=== PATIENT | female | born 2000 | race Caucasian/White ===

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

== ENCOUNTER 2020-02-03 16:26 | Emergency (ER) | payer BC | END 2020-02-03 16:47 | disposition home or self-care (01) | LOC: ED 16:37 | DX: Z02.9 Encounter for administrative examinations, unspecified (principal) ==

== ENCOUNTER 2021-02-25 02:28 | Outpatient (CLI) | payer BC ==
[2021-02-25 02:38] VITALS: BP 131/60
[2021-02-25 03:32] LABS: BASOPHILS % (AUTO) 1 % (0-1); EOSINOPHILS % (AUTO) 1 % (1-7); LYMPHOCYTES % (AUTO) 22 % (22-44); MEAN CORPUSCULAR HEMOGLOBIN 25.9 pg (27.0-34.8); MEAN CORPUSCULAR HGB CONC 33.1 g/dL (32.4-35.8); MONOCYTES % (AUTO) 7 % (2-9); NEUTROPHILS % (AUTO) 70 % (42-75); PLATELET COUNT 205 x10^3/uL (130-400); RED BLOOD COUNT 4.33 x10^6/uL (3.82-5.3); RED CELL DISTRIBUTION WIDTH 14.9 % (9.6-15.2)
[2021-02-25 03:47] LABS: MD NO
[2021-02-25 03:50] LABS: ALBUMIN 2.3 g/dL (3.4-5.0); ANION GAP 8 mmol/L (5-15); CALCIUM 8.5 mg/dL (8.5-10.1); CHLORIDE 111 mmol/L (98-107)
[2021-02-25 03:59] LABS: ALANINE AMINOTRANSFERASE 20 U/L (12-78); ALKALINE PHOSPHATASE 132 U/L (45-117); BILIRUBIN,TOTAL 0.2 mg/dL (0.2-1.0); C-REACTIVE PROTEIN, QUANT 0.61 mg/dL (0.02-0.49); CREATININE 0.58 mg/dL (0.55-1.02); TOTAL PROTEIN 6.1 g/dL (6.4-8.2)
[2021-02-25 04:03] LABS: BILIRUBIN, DIRECT < 0.1 mg/dL (0.1-0.2)
[2021-02-25 04:03] LABS: MICROSCOPIC NOT IND
[2021-02-25 04:09] LABS: RAPID INFLUENZA A Negative (Negative); RAPID INFLUENZA B Negative (Negative)
[2021-02-25 04:15] LABS: CREATININE,URINE RANDOM 71.8 mg/dL
== END 2021-02-25 04:49 | disposition home or self-care (01) ==
LOC: LDOP 02:28
PROVIDERS: ATTEND Obstetrics & Gynecology
DX: O36.8130 Decreased fetal movements, third trimester, not applicable or unspecified (principal); Z3A.38 38 weeks gestation of pregnancy
CPT/HCPCS: 36415; 59025; 76819; 80053; 81003; 82248; 82570; 83615; 84156; 84550; 85025; 86140; 87400; 87635

== ENCOUNTER 2021-03-08 07:39 | Inpatient (IN) | payer BC ==
[~2021-03-08] VITALS: Ht 165.1 cm; Wt 111.3 kg
[2021-03-09 07:24] VITALS: BP 130/83
[2021-03-09] MEDS ORDERED: PREN1TAB62 PO (07:26)
[2021-03-09] MEDS ORDERED: OXYTOCIN 30U/ 0.9% NaCL 500ML 500 ML IV ONE (07:30)
[2021-03-09] MEDS ORDERED: MISOPROSTOL 25 MCG TABLET VG PRN (07:30)
[2021-03-09] MEDS ORDERED: TERBUTALINE 1 MG/ML, 1ML SQ PRN (07:30)
[2021-03-09] MEDS ORDERED: FENTANYL PF 100 MCG/2ML IV PRN (07:30)
[2021-03-09] MEDS ORDERED: TERBUTALINE 1 MG/ML, 1ML IVPush PRN (07:30)
[2021-03-09] MEDS ORDERED: FENTANYL PF 100 MCG/2ML IVPush PRN (07:30)
[2021-03-09] MEDS ORDERED: ONDANSETRON 2MG/ML, 2ML IVPush PRN ×2 (07:30→15:00)
[2021-03-09] MEDS ORDERED: D5%-LACTATED RINGERS 1,000 ML IV SCH (07:30)
[2021-03-09 07:38] LABS: BASOPHILS % (AUTO) 1 % (0-1); EOSINOPHILS % (AUTO) 1 % (1-7); LYMPHOCYTES % (AUTO) 19 % (22-44); MEAN CORPUSCULAR HEMOGLOBIN 25.8 pg (27.0-34.8); MEAN PLATELET VOLUME 9.8 fL (7.4-10.4); MONOCYTES % (AUTO) 8 % (2-9); NEUTROPHILS % (AUTO) 71 % (42-75); PLATELET COUNT 245 x10^3/uL (130-400); RED BLOOD COUNT 4.64 x10^6/uL (3.82-5.3); RED CELL DISTRIBUTION WIDTH 15.5 % (9.6-15.2)
[2021-03-09] MEDS: LACTATED RINGERS 1,000 ML IV SCH ×2 (07:44→11:45)
[2021-03-09] MEDS ORDERED: NEWBORN KIT ONE (07:46)
[2021-03-09] MEDS ORDERED: MISOPROSTOL 200 MCG TABLET ONE (07:46)
[2021-03-09] MEDS ORDERED: LIDOCAINE 1%, 20ML ONE (07:46)
[2021-03-09] MEDS ORDERED: OXYTOCIN 30U/ 0.9% NaCL 500ML 500 ML IV PRN (08:30)
[2021-03-09] MEDS ORDERED: LACTATED RINGERS 1,000 ML IVBOLUS PRN (11:30)
[2021-03-09] MEDS ORDERED: NALOXONE 0.4 MG/ML, 1ML IVPush PRN (11:30)
[2021-03-09] MEDS ORDERED: FENTANYL/BUPIV./NS/PF 250 ML EPIDCONT SCH (11:30)
[2021-03-09] MEDS ORDERED: LACTATED RINGERS 1,000 ML IV SCH (11:30)
[2021-03-09] MEDS ORDERED: EPHEDRINE 50 MG/ML, 1ML IVPush PRN (11:30)
[2021-03-09] MEDS ORDERED: MISOPROSTOL 200 MCG TABLET PR PRN (19:30)
[2021-03-09] MEDS ORDERED: DOCUSATE 100 MG CAPSULE PO PRN (19:30)
[2021-03-09] MEDS: OXYTOCIN 30U/ 0.9% NaCL 500ML 500 ML IV SCH (19:30)
[2021-03-09] MEDS ORDERED: OXYcodone IR 5MG TABLET PO PRN (19:30)
[2021-03-09] MEDS ORDERED: ACETAMINOPHEN 325 MG TABLET PO PRN (19:30)
[2021-03-09] MEDS ORDERED: ONDANSETRON 2MG/ML, 2ML IV PRN (19:30)
[2021-03-09] MEDS ORDERED: SIMETHICONE 80 MG CHEW TAB PO PRN (19:30)
[2021-03-09] MEDS: IBUPROFEN 600 MG TABLET PO PRN (20:00)
[2021-03-09 21:15] VITALS: BP 129/85
[2021-03-09] MEDS: OXYcodone/APAP 5/325MG TABLET PO PRN (23:58)
[2021-03-10 01:48] VITALS: BP 100/63
[2021-03-10 02:55] LABS: BASOPHILS % (AUTO) 1 % (0-1); EOSINOPHILS % (AUTO) 1 % (1-7); LYMPHOCYTES % (AUTO) 15 % (22-44); MEAN CORPUSCULAR HEMOGLOBIN 25.7 pg (27.0-34.8); MEAN CORPUSCULAR HGB CONC 33.1 g/dL (32.4-35.8); MEAN PLATELET VOLUME 9.8 fL (7.4-10.4); MONOCYTES % (AUTO) 9 % (2-9); NEUTROPHILS % (AUTO) 75 % (42-75); PLATELET COUNT 190 x10^3/uL (130-400); RED BLOOD COUNT 3.99 x10^6/uL (3.82-5.3); RED CELL DISTRIBUTION WIDTH 15.5 % (9.6-15.2)
[2021-03-10] MEDS: OXYcodone/APAP 5/325MG TABLET PO PRN ×3 (05:07→18:22)
[2021-03-10] MEDS: OXYTOCIN 30U/ 0.9% NaCL 500ML 500 ML IV SCH (05:10)
[2021-03-10 05:24] VITALS: BP 129/87
[2021-03-10 08:00] VITALS: BP 142/85
[2021-03-10] MEDS ORDERED: PRENATAL VIT/IRON/FA 1 EACH TABLET PO SCH (09:00)
[2021-03-10] MEDS: IBUPROFEN 600 MG TABLET PO PRN ×2 (10:56→17:05)
[2021-03-10 12:16] VITALS: BP 119/75
[2021-03-10] MEDS ORDERED: DIPH,PERTUSS(ACELL),TET VAC/PF NC IM-VACC ONE (14:30)
[2021-03-10] MEDS ORDERED: IBUP-1222 PO (17:15)
== END 2021-03-10 20:32 | disposition home or self-care (01) | DRG 807 ==
LOC: LDIP 03-09 07:10 → 2NW 03-09 21:16
PROVIDERS: ADMIT Obstetrics & Gynecology; ATTEND Obstetrics & Gynecology
PROC: 10E0XZZ Delivery of Products of Conception, External Approach (ICD-10-PCS; principal; 2021-03-09)
PROC: 0HQ9XZZ Repair Perineum Skin, External Approach (ICD-10-PCS; 2021-03-09)
PROC: 3E0R3BZ Introduction of Anesthetic Agent into Spinal Canal, Percutaneous Approach (ICD-10-PCS; 2021-03-09)
PROC: 00HU33Z Insertion of Infusion Device into Spinal Canal, Percutaneous Approach (ICD-10-PCS; 2021-03-09)
DX: O70.0 First degree perineal laceration during delivery (principal); Z37.0 Single live birth; Z20.822 Contact with and (suspected) exposure to COVID-19; Z3A.39 39 weeks gestation of pregnancy
CPT/HCPCS: 36415; 85025; 86592; 86850; 86900; 87635; 90715; G0378; J2590; J3010; J7120